=== PATIENT | female | born 1955 | race Caucasian/White ===

== ENCOUNTER 2020-06-25 11:03 | Emergency (ER) | payer OTHER ==
[~2020-06-25] VITALS: Ht 165.1 cm; Wt 113.4 kg
[~2020-06-25 11:03] MED LIST: AMITRIPTYLINE H25 M2 PO; ARAVA10 MG PO; ARTIFICIAL TEAR15 M3 OPHTHALMIC; BETA-VAL 0.1% O45 GM TOP; CIPRO250 M1 PO; CLEOCIN; DOXYCYCLINE 10100 MG PO; ELOCON30 ML TP; FEVERALL JR 32325 M1 RECTAL; FLUNISOLIDE25 M1 NASAL; FOLIC ACID1 MG PO; FUROSEMIDE 40 M40 MG PO; GEMFIBROZIL 60600 MG PO; HYDROCODON-ACE1 EACH PO; IBUPROFEN 600600 M1 PO; K-DUR10 ME1 PO; LANTUS SUBQ; LASIX 20 MG TAB20 MG PO; LEVEMIR; LIPITOR 20 MG T20 M1 PO; LISINOPRIL20 MG PO; METANX TABLET1 EAC1 PO; MOMETASONE FUROATE INH; NEURONTIN 300300 M1 PO; NORCO 5-325 TA1 EACH PO; NOVOLOG100 UNIT/1 SUBQ; OMEPRAZOLE20 M2 PO; POTASSIUM CHLORIDE PO; POTASSIUM20; PREDNISONE 5 MG5 M1 PO; PROAIR HFA8.5 GM INH; PROVENTIL; TRADJENTA5 MG PO; VITAMIN D 5050000 I1 PO; ZOCOR 10 MG TAB10 MG PO
[2020-06-25] MEDS ORDERED: AMITRIPTYLINE H10 M1 PO (12:00)
[2020-06-25] MEDS ORDERED: VALACYCLOVIR1000 MG PO (12:00)
[2020-06-25] MEDS ORDERED: HYDROXYCHLOROQ200 M1 PO (12:01)
[2020-06-25] MEDS ORDERED: VICTOZA 3-0.6 MG/0.1 (12:02)
[2020-06-25 12:10] LABS: BASOPHILS 0.5 % (0.0-2.0); EOSINOPHILS 0.3 % (0.0-3.0); HEMATOCRIT 34.4 % (37.0-47.0); HEMOGLOBIN 11.8 gm/dL (12.0-15.0); LYMPHOCYTES 14.9 % (24.0-44.0); MCH 28.2 pg (26.0-34.0); MCHC 34.3 g/dL (28.0-37.0); MCV 82.3 fL (80.0-100.0); MONOCYTES 6.4 % (1.0-8.0); PLATELET COUNT 144 thou/uL (150-400); POLYS 77.9 % (36.0-66.0); RBC 4.19 mil/uL (4.20-5.00); RDW 16.1 % (10.5-14.5); WBC 3.9 thou/uL (4.0-11.0)
[2020-06-25 13:08] LABS: ANION GAP 15 mmol/L (7-16); BUN 23 mg/dL (7-18); CALCIUM 8.7 mg/dL (8.5-10.1); CHLORIDE 96 mmol/L (98-107); CO2 18 mmol/L (21-32); CREATININE 1.1 mg/dL (0.6-1.0); GLUCOSE 317 mg/dL (74-106); POTASSIUM 4.9 mmol/L (3.5-5.1); SODIUM 129 mmol/L (136-145)
[2020-06-25 13:16] LABS: ALBUMIN 2.8 g/dL (3.4-5.0); SGOT 79 U/L (15-37); SGPT 53 U/L (30-65); TOTAL BILIRUBIN 4.7 mg/dL (0.2-1.0); TOTAL PROTEIN 7.5 g/dL (6.4-8.2); TROPONIN-I <0.06 ng/mL (<0.06)
[2020-06-25 13:41] LABS: AMP/METHAMP Negative (Negative); BARBITURATES Negative (Negative); BENZODIAZEPINES Negative (Negative); COCAINE Negative (Negative); METHADONE Negative (Negative); OPIATES Negative (Negative); PCP Negative (Negative)
[2020-06-25 14:01] LABS: URINE BILIRUBIN 2+ (Negative); URINE BLOOD 1+ (Negative); URINE CLARITY CLEAR; URINE COLOR YELLOW; URINE GLUCOSE-RANDOM* 2+ (Negative); URINE KETONES 2+ (Negative); URINE LEUKOCYTES-REFLEX TRACE (Negative); URINE NITRITE-REFLEX NEGATIVE (Negative); URINE PROTEIN (DIPSTICK) 1+ (Negative); URINE SPECIFIC GRAVITY 1.015 (1.005-1.035); URINE UROBILINOGEN 0.2 E.U./dl (0.2-1.0)
[2020-06-25 14:20] LABS: ICTOTEST (BILI CONFIRMATORY) Positive (Negative)
[2020-06-25 14:56] LABS: BACTERIA-REFLEX 1-9 Few /HPF (None Seen); CASTS None Seen /LPF (None Seen); CRYSTALS None Seen /LPF (None Seen); SQUAMOUS 4-10 Moderate /LPF (0-3); URINE RBC None Seen /HPF (0-2); URINE WBC-REFLEX 0-5 Rare /HPF (0-5)
[2020-06-25 14:56] LABS: BE(vivo) -1.7 mmol/L (-2 to +3); HCO3 20.4 mmol/L (22.0-26.0); PCO2 VENOUS 26.9 mmHg (41.0-51.0); PO2 VENOUS 30.8 mmHg (35.0-45.0)
[2020-06-25] MEDS ORDERED: KEFLEX500 M1 PO (15:42)
[2020-06-25] MEDS ORDERED: VALTREX1000 MG PO (15:42)
[2020-06-25 15:43] VITALS: BP 150/63
--- NOTE | 2020-06-25 15:57 | EKG ---
[facility] [address] ELECTROCARDIOGRAM REPORT Name: KUNAL ERVIN Room #: REG [facility]#: [id number] Admission: 06/25/20 Attend Phys: Discharge: Date of : 59 Report #: [id number] THIS REPORT FOR: cc: FAM - Family physician unknown FAM - Family physician unknown Dino Zambrano MD ~ THIS REPORT FOR: //name// [facility] ED Test Date: 2020-06-25 Test Time: 14:19:57 Pat Name: KUNAL ERVIN Department: Room: Gender: F [employer]: HELEN : 1955 Requested By: Dorian Del Rio Order Number: [id number] : Dino Zambrano Measurements Intervals [place] Rate: 82 P: 19 WA: 148 QRS: 11 QRSD: 108 T: 6 QT: 383 QTc: 448 Interpretive Statements Sinus rhythm Low voltage, precordial leads Abnormal R-wave progression, late transition Minimal ST elevation, lateral leads Compared to ECG 03/26/2013 07:05:25 ST (T wave) deviation now present Poor R-wave progression no longer present Electronically Signed On 06-25-2020 15:57:46 CDT by Dino Zambrano [email or web address] <ELECTRONICALLY SIGNED> By: Dino Zambrano MD 06/25/20 1557 1419 1419 Dino Zambrano MD /EPI
[2020-06-25] MEDS ORDERED: DOXYCYCLINE 10100 MG PO (17:59)
== END 2020-06-25 15:43 | disposition home or self-care (01) ==
LOC: ER 11:03
PROVIDERS: Emergency Medicine; Physician Assistant
DX: B02.9 Zoster without complications (principal); L03.311 Cellulitis of abdominal wall; E11.40 Type 2 diabetes mellitus with diabetic neuropathy, unspecified; K21.9 Gastro-esophageal reflux disease without esophagitis; E11.9 Type 2 diabetes mellitus without complications; Z88.1 Allergy status to other antibiotic agents; Z88.4 Allergy status to anesthetic agent; Z88.2 Allergy status to sulfonamides; Z79.899 Other long term (current) drug therapy; Z79.4 Long term (current) use of insulin